=== PATIENT | male | born 1980 | race Caucasian/White ===

== ENCOUNTER → 2016-03-09 | Outpatient (CLI) | payer BC ==
[~2016-03-09] MED LIST: ALLEGRA180 MG PO; CELEXA; DEXILANT60 MG PO; FLEXERIL10 MG PO; LORTAB 5/500 501 TAB PO; MECLIZINE25 MG PO; NO HOME MEDICATIONS; PRILOSEC20 MG PO; WELLBUTRIN PO
== END ==
LOC: BHSO 08:15
DX: F41.1 Generalized anxiety disorder (principal)

== ENCOUNTER → 2016-11-28 | Outpatient (CLI) | payer BC | LOC: BHSO 08:33 | DX: F41.1 Generalized anxiety disorder (principal) ==

== ENCOUNTER 2017-10-14 13:12 | Day surgery (SDC) | payer BC ==
[~2017-10-14] VITALS: Ht 177.8 cm; Wt 106.4 kg
[2017-10-14 13:59] VITALS: BP 121/79; PULSE 73; TEMP 98.1
[2017-10-14] MEDS ORDERED: NEXIUM 40MG40 MG PO (14:07)
[2017-10-14] MEDS ORDERED: LIPITOR 40MG TA40 MG PO (14:08)
[2017-10-14] MEDS ORDERED: PROZAC60 MG PO (14:08)
[2017-10-14 15:00] VITALS: BP 125/69; PULSE 72; TEMP 98.2
[2017-10-14 15:15] VITALS: BP 112/62; PULSE 79
== END 2017-10-14 15:55 | disposition home or self-care (01) ==
LOC: SDCO 13:12
DX: K21.9 Gastro-esophageal reflux disease without esophagitis (principal); K44.9 Diaphragmatic hernia without obstruction or gangrene; R13.10 Dysphagia, unspecified
CPT/HCPCS: J2250; J3010; J7030

== ENCOUNTER → 2018-05-15 | Outpatient (CLI) | payer BC ==
[~2018-05-15] MED LIST changes: +LIPITOR 40MG TA40 MG PO; +NEXIUM 40MG40 MG PO; +PROZAC60 MG PO
== END ==
LOC: COL.RAD 09:58
DX: K21.9 Gastro-esophageal reflux disease without esophagitis (principal); K44.9 Diaphragmatic hernia without obstruction or gangrene

== ENCOUNTER 2018-10-29 05:46 | Day surgery (SDC) | payer BC ==
[~2018-10-29] VITALS: Ht 177.8 cm; Wt 104.8 kg
[2018-10-29] VITALS (11 sets, daily range): BP systolic 124–151; BP diastolic 72–88; PULSE 69–107; TEMP 97–98.6
[2018-10-29] MEDS ORDERED: PROZAC 20MG20 MG PO (06:19)
--- NOTE | 2018-10-29 10:21 | NUR ---
PT TO ROOM 347 PER BED WITH FELECIA CLIP BOLTER AND WRAPPER REPORTING @ 1005. PT IS A/O X3, LUNGS CLEAR, BOWEL SOUNDS ABSENT. 6 LAP SITES CDI WITH BANDAIDS. SCDS BILATERALLY. PT DENIES PAIN AT THIS TIME.
--- NOTE | 2018-10-29 16:52 | NUR ---
PT UP TO BR INDEPENDENTLY VOIDED AND RETURNED TO BED. INCREASED PO INTAKE AND AMBULATION ENCOURAGED.
--- NOTE | 2018-10-29 19:10 | NUR ---
Bedside report received from YUDY Araujo
--- NOTE | 2018-10-29 20:00 | NUR ---
Patient awake and laying in bed watching TV. Patient complaints of pain rated 6/10 and sharp in his abdomen and pain in his right shoulder that is a dull ache. Patient cannot have more of his usual pain med for another hour, patient states that it is tolerable and he can wait. Assessment complete. Lap sites are all intact and clean and dry with exception of high midline site which has a small amount of drainage on it. Patient goes on a walk with his and kids. Says shoulder pain did get somewhat worse when standing. Patient returns to bed. Pain medication to be provided when available. No further needs at this time. Will continue to monitor. Call light within reach.
[2018-10-30] VITALS: BP 144/72; PULSE 85; TEMP 97.6
--- NOTE | 2018-10-30 | NUR ---
Patient awake laying in bed. Patient states pain is a 6/10 still. Medication provided. No further needs at this time. Will continue to monitor. Call light within reach.
[2018-10-30 04:00] VITALS: BP 141/78; PULSE 72; TEMP 97.7
--- NOTE | 2018-10-30 06:36 | NUR ---
report given to YUDY Araujo
[2018-10-30 09:09] VITALS: BP 139/78; PULSE 80; TEMP 97.7
[2018-10-30 11:21] VITALS: BP 131/78; PULSE 70; TEMP 97.8
--- NOTE | 2018-10-30 13:37 | NUR ---
DOREEN met with the patient and patient's , Jaqui, to discuss discharge plan. The patient lives in [place] with his and their two children. He reports independence with ADLs and does not have any DME. The patient's PCP is Dr. Adriana Patel and he receives his medications at the [facility]. He reports no difficulties obtaining his meds. The patient does not have advanced directives and he was not interested in completing them at this time. The patient plans to return home with his family upon discharge. No additional needs at this time.
[2018-10-30 16:18] VITALS: BP 120/62; PULSE 68; TEMP 98.1
--- NOTE | 2018-10-30 16:52 | NUR ---
pt up ambulating independently in halls several times this shift. mild nausea gave prn medication and pt reported relife.
[2018-10-30] MEDS ORDERED: NORCO 325 MG-51 TAB PO (16:56)
--- NOTE | 2018-10-30 17:27 | NUR ---
discharge instructions reviewed with pt and , questions solicited and answered. pt going to eat supper and then go home.
--- NOTE | 2018-10-30 18:01 | NUR ---
pt left ambulatory at this time.
== END 2018-10-30 18:00 | disposition home or self-care (01) ==
LOC: SDCO 05:46 → SURG 10:05 → SDCO 18:00
DX: K44.9 Diaphragmatic hernia without obstruction or gangrene (principal); K21.9 Gastro-esophageal reflux disease without esophagitis; F32.9 Major depressive disorder, single episode, unspecified; E78.5 Hyperlipidemia, unspecified; G47.33 Obstructive sleep apnea (adult) (pediatric); F41.9 Anxiety disorder, unspecified; G47.10 Hypersomnia, unspecified; Z80.51 Family history of malignant neoplasm of kidney; Z82.49 Family history of ischemic heart disease and other diseases of the circulatory system
CPT/HCPCS: OP; J0690; J1100; J1170; J1885; J2405; J2704; J3010; J7120

== ENCOUNTER → 2020-03-31 | Outpatient (CLI) | payer BC ==
[~2020-03-31] MED LIST changes: +NORCO 325 MG-51 TAB PO; +PROZAC 20MG20 MG PO
== END ==
LOC: COL.LAB
DX: R07.9 Chest pain, unspecified (principal)

== ENCOUNTER 2024-01-22 20:57 | Emergency (ER) | payer OTHER, BC ==
[~2024-01-22] VITALS: Ht 177.8 cm; Wt 100.0 kg
[2024-01-22 21:07] VITALS: BP 129/84; TEMP 97.6
[2024-01-22 21:37] LABS: COLLECTION METHOD CLEAN CATCH
[2024-01-22 21:41] LABS: URINE APPEARANCE CLEAR (CLEAR/HAZY); URINE BLOOD NEGATIVE (NEGATIVE); URINE COLOR YELLOW (YELLOW); URINE GLUCOSE NEGATIVE (NEGATIVE); URINE KETONE TRACE (NEGATIVE); URINE NITRATE NEGATIVE (NEGATIVE); URINE PROTEIN(semi-quant) NEGATIVE (NEGATIVE)
[2024-01-22] MEDS ORDERED: Ketorolac 30 MG/ML VIAL IM ONE (22:00)
[2024-01-22] MEDS ORDERED: Cyclobenzaprine 10 MG TAB PO ONE (22:00)
[2024-01-22] MEDS ORDERED: FLEXERIL 1010 MG/TAB PO (22:10)
[2024-01-22] MEDS ORDERED: predniSONE 20 MG TAB PO ONE (22:15)
[2024-01-22 22:35] VITALS: PULSE 76
== END 2024-01-22 22:35 | disposition home or self-care (01) ==
LOC: COL.ER 20:57
PROVIDERS: Nurse Practitioner
DX: M54.50 Low back pain, unspecified (principal); N50.812 Left testicular pain; N50.811 Right testicular pain
CPT/HCPCS: J1885; J7512

== ENCOUNTER → 2024-01-24 | Outpatient (CLI) | payer OTHER, BC ==
[~2024-01-24] MED LIST changes: +FLEXERIL 1010 MG/TAB PO
== END ==
LOC: COL.RAD 06:52
DX: N43.40 Spermatocele of epididymis, unspecified (principal)